=== PATIENT | male | born 1960 | race Asian ===

== ENCOUNTER 2019-03-11 12:11 | Emergency (ER) | payer BC ==
[~2019-03-11] VITALS: Ht 177.8 cm; Wt 136.1 kg
[2019-03-11 12:33] VITALS: TEMP 98.1
[2019-03-11 14:36] VITALS: BP 145/67
== END 2019-03-11 14:36 | disposition home or self-care (01) ==
LOC: ED 12:11
DX: J11.1 Influenza due to unidentified influenza virus with other respiratory manifestations (principal); J20.9 Acute bronchitis, unspecified
CPT/HCPCS: 87502; 87651; 94664; 99283

== ENCOUNTER 2020-01-05 11:44 | Emergency (ER) | payer BC | END 2020-01-05 13:00 | disposition home or self-care (01) | LOC: ED 11:44 | DX: M79.18 Myalgia, other site (principal); M54.5 Low back pain; G89.29 Other chronic pain; M54.16 Radiculopathy, lumbar region | CPT/HCPCS: 96372; 99283; J1885; J2930 ==

== ENCOUNTER 2020-01-08 11:12 | Emergency (ER) | payer BC ==
[~2020-01-08] VITALS: Ht 177.8 cm; Wt 136.1 kg
[2020-01-08 13:54] VITALS: BP 126/86; TEMP 98
== END 2020-01-08 14:02 | disposition home or self-care (01) ==
LOC: ED 11:12
DX: M54.32 Sciatica, left side (principal)
CPT/HCPCS: 99283

== ENCOUNTER 2021-08-06 17:09 | Emergency (ER) | payer BC ==
[~2021-08-06] VITALS: Ht 177.8 cm; Wt 140.6 kg
[2021-08-06 18:30] VITALS: BP 157/79; TEMP 98
== END 2021-08-06 18:30 | disposition home or self-care (01) ==
LOC: ED 17:09
PROC: 2W3MX1Z Immobilization of Left Lower Extremity using Splint (ICD-10-PCS; principal; 2021-08-06)
DX: M25.562 Pain in left knee (principal)
CPT/HCPCS: 96372; 99283; J1885

== ENCOUNTER 2022-09-16 18:36 | Emergency (ER) | payer BC ==
[~2022-09-16] VITALS: Ht 180.3 cm; Wt 145.2 kg
[2022-09-16 18:40] VITALS: TEMP 97.9
[2022-09-16 20:14] LABS: PLATELET COUNT 147 K/uL (142-355)
[2022-09-16 20:35] VITALS: BP 157/94
== END 2022-09-16 20:35 | disposition home or self-care (01) ==
LOC: ED 18:36
PROVIDERS: Family Medicine
DX: J40 Bronchitis, not specified as acute or chronic (principal)
CPT/HCPCS: 36415; 85027; 87502; 99283